=== PATIENT | female | born 1965 | race Caucasian/White ===

== ENCOUNTER 2024-10-09 18:06 | Emergency (ER) | payer OTHER ==
[~2024-10-09] VITALS: Ht 160 cm; Wt 68.0 kg
--- NOTE | 2024-10-09 18:17 | NUR ---
TRAUMA ACTIVATION PER PROVIDER DISCRETION
--- NOTE | 2024-10-09 18:22 | NUR ---
PENDING GFR RESULTS, IV SITE, & CONSENT FOR CT EXAM. Addendum: 10/09/24 at 1826 by AUTUMN GILLIAM DISREGARD NOTE. TRAUMA ACTIVATED. NO NEED TO WAIT FOR LAB RESULTS OR CONSENT FOR CT EXAM.
[2024-10-09] MEDS ORDERED: IOHEXOL-350 50ML VIAL IV ONE (18:28)
--- NOTE | 2024-10-09 18:30 | NUR ---
PT MOVED FROM ROOM 7 TO ER ROOM 18. RECEIEVED REPORT FROM VELMA RN ASSUMED CARE AT THIS TIME
[2024-10-09 18:38] LABS: BASOPHILS # (AUTO) 0.05 K/uL (0.00-0.20); BASOPHILS % (AUTO) 0.7 % (0.0-5.0); EOSINOPHILS # (AUTO) 0.15 K/uL (0.00-0.70); HEMATOCRIT 36.4 % (36-48); IMMATURE GRANULOCYTE ABSOLUTE 0.01 K/uL (0-1); LYMPHOCYTES # (AUTO) 3.7 K/uL (1.0-4.8); LYMPHOCYTES % (AUTO) 48.7 % (21.0-51.0); MEAN CORPUSCULAR HEMOGLOBIN 32.1 pg (27.0-33.0); MEAN CORPUSCULAR HGB CONC 34.9 g/dL (32.0-36.0); MEAN CORPUSCULAR VOLUME 91.9 fL (79-99); MONOCYTES # (AUTO) 0.5 K/uL (0.1-1.0); NEUTROPHILS # (AUTO) 3.2 K/uL (1.8-7.7); NEUTROPHILS % (AUTO) 42.5 % (40.0-77.0); PLATELET COUNT (AUTO) 265 K/uL (130-400); RED BLOOD CELL COUNT(AUTO) 3.96 MIL/uL (4.00-5.50); WHITE BLOOD COUNT (AUTO) 7.5 K/uL (4.8-10.8)
--- NOTE | 2024-10-09 18:45 | ERN ---
ED Note History of Present Illness Stated Complaint: JUMPED ON SHOULDER BY DONKEY Chief Complaint: Trauma Activation Time Seen by MD: 18:44 Dictation: Patient comes to the ED. Because she was kicked in the right shoulder by by a donkey. Denies any injuries anywhere else Allergies: Coded Allergies: morphine (Unverified Allergy, Unknown, 10/09/24) Past Medical History Past Medical History: Other Additional Past Medical Hx: GASTRIC BYPASS Surgical History: Other Surgical History Other: BILATERAL KNEE REPLACEMENT Review of System Dictation Constitutional: Negative for fever,chills, and weight loss Eyes: Negative for injury, pain,redness, and discharge ENT: Negative for injury,pain or swelling Cardiovascular: Negative for chest pain, palpitations, and edema Respiratory: Negative for shortness of breath, cough, and wheezing, Abdomen/GI: Negative for abdominal pain, nausea, vomiting, diarrhea, and constipation Back: Negative for injury and pain : Negative for injury, bleeding and discharge MS/Extremity: Right shoulder pain Skin: Negative for rash, and discoloration Neuro: Negative for headache, weakness, numbness, tingling, and seizure Psych: Negative for suicide ideation, homicidal ideation, and hallucinations Initial Vital Sign VS Vital Signs Date Time Temp Pulse Resp B/P (MAP) Pulse Ox O2 Delivery O2 Flow Rate FiO2 10/09/24 18:10 98.2 58 16 113/79 98 Room Air 0 10/09/24 18:30 21 Physical Exam Dictation Patient has some right shoulder pain. But there is no scrapes cuts lesions or break in the skin General: awake, alert, NAD Head/Face: Normocephalic, atraumatic Eyes: PERRL, EOMI, vision at baseline ENT: oral cavity clear, TMs clear, no signs of infection Neck: Trachea midline, supple, no nuchal rigidity Cardiovascular: RRR, normal S1/S2, No MRGs, no JVD Respiratory: CTAB, no respiratory distress, No rales or wheezes Abdomen: Soft, non-tender, non-distended, normal bowel sounds, no guarding or rebound. Skin: Warm, dry, normal turgor, no rash MS/Extremity: Pulses equal, no cyanosis, neurovascular intact, FROM Neuro: COAx4, GCS 15, strength 5/5, CN 2-12 intact, normal cerebellar exam, normal gait, Psych: Normal behavior, mood, and affect normal Results (Laboratory/Radiology) Laboratory/Radiology Laboratory Tests Test 10/09/24 18:32 White Blood Count 7.5 K/uL (4.8-10.8) Red Blood Count 3.96 MIL/uL (4.00-5.50) L Hemoglobin 12.7 g/dL (12.0-16.0) Hematocrit 36.4 % (36-48) Mean Corpuscular Volume 91.9 fL (79-99) Mean Corpuscular Hemoglobin 32.1 pg (27.0-33.0) Mean Corpuscular Hemoglobin Concent 34.9 g/dL (32.0-36.0) Red Cell Distribution Width 13.0 % (11.0-15.5) Platelet Count 265 K/uL (130-400) Mean Platelet Volume 9.9 fL (7.5-10.5) Immature Granulocyte % (Auto) 0.1 % (0-1) Neutrophils (%) (Auto) 42.5 % (40.0-77.0) Lymphocytes (%) (Auto) 48.7 % (21.0-51.0) Monocytes (%) (Auto) 6.0 % (3.0-13.0) Eosinophils (%) (Auto) 2.0 % (0.0-8.0) Basophils (%) (Auto) 0.7 % (0.0-5.0) Neutrophils # (Auto) 3.2 K/uL (1.8-7.7) Lymphocytes # (Auto) 3.7 K/uL (1.0-4.8) Monocytes # (Auto) 0.5 K/uL (0.1-1.0) Eosinophils # (Auto) 0.15 K/uL (0.00-0.70) Basophils # (Auto) 0.05 K/uL (0.00-0.20) Absolute Immature Granulocyte (auto 0.01 K/uL (0-1) Nucleated Red Blood Cells 0.0 % (0.0-0.19) Prothrombin Time 10.0 SEC (9.6-11.6) Prothromb Time International Ratio <= 0.93 (0.85-1.15) Sodium Level 145 mmol/L (136-145) Potassium Level 3.5 mmol/L (3.5-5.1) Chloride Level 108 mmol/L (101-111) Carbon Dioxide Level 27 mmol/L (21-32) Blood Urea Nitrogen 14 mg/dL (7-18) Creatinine 0.8 mg/dL (0.5-1.0) Glomerular Filtration Rate Calc 84 mL/min (>90) Random Glucose 91 mg/dL (70-105) Total Calcium 8.9 mg/dL (8.5-10.1) Total Creatine Kinase 116 U/L (21-232) Troponin I High Sensitivity 5 ng/L (4-50) ED Course ED Course Orders Procedure Category Date Status Time Cbc With Differential LAB 10/09/24 Complete 18:08 Prothrombin Time With LAB 10/09/24 Complete INR 18:08 Chest 1vw RAD 10/09/24 Resulted 18:08 12 Lead Ekg Tracing- EKG 10/09/24 Logged Technical 18:08 Creatine Kinase, Total LAB 10/09/24 Complete 18:08 Troponin I High LAB 10/09/24 Complete Sensitivity 18:08 Basic Metabolic Panel LAB 10/09/24 Complete 18:08 Shoulder Comp 2+Vws Rt RAD 10/09/24 Resulted 18:08 Ct Chest W/Contrast CT 10/09/24 Resulted 18:08 Ondansetron 4mg Inj PHA 10/09/24 Complete (Zofran 4mg Inj) 18:30 Morphine 2mg Syg PHA 10/09/24 Complete (Morphine 2mg Syg) 18:30 Iohexol (Omnipaque) PHA 10/09/24 Complete 18:28 Current Medications Medications (Trade) Dose Ordered Sig/Darrel Route PRN Reason Start Time Stop Time Status Last Admin Dose Admin Iohexol (Omnipaque) 50 ml STK-MED ONCE IV 10/09/24 18:28 10/09/24 18:34 DC Morphine Sulfate (morPHINE 2MG SYG) 2 mg ONCE ONCE IVP 10/09/24 18:30 10/09/24 18:31 DC 10/09/24 19:12 Ondansetron HCl (zoFRAN 4MG INJ) 4 mg ONCE ONCE IVP 10/09/24 18:30 10/09/24 18:31 DC 10/09/24 19:12 Vital Signs Date Time Temp Pulse Resp B/P (MAP) Pulse Ox O2 Delivery O2 Flow Rate FiO2 10/09/24 19:37 97.9 50 12 124/62 97 Room Air* 0 21 12/22/24 18:45 98.2 57 18 123/70 98 Room Air* 0 10/09/24 18:30 98.2 57 18 125/71 98 Room Air* 0 10/09/24 18:10 98.2 58 16 113/79 98 Room Air 0 Medical Decision Making MDM No pneumothorax noted on x-ray. Pending CT scan. Taking over patient. By Dr. Wisdom. If stable imaging and labs will be safe for discharge DX & DISP Disposition: Discharge Departure Impression: Primary Impression: Shoulder pain Condition: Stable MADELAINE LEIGH MD Oct 09, 2024 18:44
[2024-10-09 18:46] LABS: CREATININE 0.8 mg/dL (0.5-1.0); POTASSIUM 3.5 mmol/L (3.5-5.1)
[2024-10-09 18:50] LABS: INR <= 0.93 (0.85-1.15)
--- NOTE | 2024-10-09 18:50 | NUR ---
PT TAKEN TO CT AT THIS TIME
--- NOTE | 2024-10-09 18:57 | HMCIMG ---
CHEST 1VW HISTORY: Trauma COMPARISON: None FINDINGS: A frontal projection of the chest was obtained. No acute pulmonary infiltrates is seen. The heart is borderline enlarged. Prominent interstitial markings are seen. Degenerative changes are seen. No evidence of aortic calcification is seen. IMPRESSION: 1. No acute pulmonary infiltrate is seen.
--- NOTE | 2024-10-09 19:00 | NUR ---
PT STATES SOMETIMES HAS HALLUCINATIONS WITH MORPHINE. PT GAVE VERBAL CONSENT TO ADMINISTER MORPHINE FOR PAIN. ER DR ROJAS.
[2024-10-09] MEDS: morPHINE 2 MG SYG IVP ONE (19:12)
[2024-10-09] MEDS: ondanSETRON 4MG INJ IVP ONE (19:12)
--- NOTE | 2024-10-09 19:13 | HMCIMG ---
SHOULDER COMP 2+VWS RT HISTORY: Trauma COMPARISON: None TECHNIQUE: 2 images of right shoulder were obtained. FINDINGS: There is no acute displaced fracture or dislocation. Degenerative changes are seen. IMPRESSION: 1. Findings as described above.
--- NOTE | 2024-10-09 19:34 | HMCIMG ---
CT CHEST W/CONTRAST HISTORY: Trauma COMPARISON: None TECHNIQUE: Multiple sequential axial images of the chest were obtained from the thoracic inlet through upper abdomen. Patient was not given contrast through intravenous route. FINDINGS: There is no evidence of pulmonary nodule or parenchymal disease. No pleural effusion or pericardial effusion is seen. There is no evidence of pneumothorax. There are normal size mediastinal and hilar lymph nodes. The heart is not enlarged. Degenerative changes of the thoracolumbar spine are present. There is no evidence of adrenal nodule. IMPRESSION: 1. No evidence of pulmonary nodule or effusion is seen. CT was performed with one or more following dose reduction techniques: automated exposure control, adjustment of the mA and kv according to patient's size, or use of a iterative reconstruction technique.
--- NOTE | 2024-10-09 20:10 | NUR ---
TRAUMA ALERT DISCONTINUED AT THIS TIME PER DR. LEIGH. AT PATIENTS BEDSIDE AT THIS TIME AND UPDATING PT AND FAMILY ON THE STATUS.
[2024-10-09 20:44] VITALS: BP 121/59; PULSE 53; RESP 14; TEMP 98.2; O2SAT 97
--- NOTE | 2024-10-10 05:17 | EKG ---
[facility] Test Date: 2024-10-09 Test Time: 18:20:15 Pat Name: MICHELLE PURI Department: ED Room: Gender: F [employer]ist: [id number] : 1965 Requested By: NAREN CRAIG Order Number: [id number] Reading MD: Bhavna Sosa Measurements Intervals [place] Rate: 54 P: -3 MD: 125 QRS: 33 QRSD: 85 T: 17 QT: 456 QTc: 431 Interpretive Statements Sinus rhythm No previous ECG available for comparison Electronically Signed On 10-10-2024 18:10:01 [employer] by Bhavna Sosa Please click the below link to view image of tracing.
== END 2024-10-09 20:43 | disposition home or self-care (01) ==
LOC: EDH 18:06
DX: M25.511 Pain in right shoulder (principal); Z88.5 Allergy status to narcotic agent; Z96.653 Presence of artificial knee joint, bilateral; Z98.84 Bariatric surgery status
CPT/HCPCS: 99285; 96374; 71260; 71045; 96375; 82550; 84484; 80048; 85025; 85610; 36415; 73030; 93005; J2270; J2405; Q9967